=== PATIENT | female | born 1950 ===

== ENCOUNTER → 2017-07-15 18:27 | Outpatient (CLI) | payer OTHER ==
[~2017-07-15 18:27] MED LIST: ASA81 MG; CATAFLAN 50MG; CIPROFLOXACIN750 MG PO; CLONAZEPAM1 MG PO; DOCUSATE SODIU100 MG PO; GABAPENTIN800 MG PO; LEXAPRO20 MG; METHYLPRED4 MG/DOSE- PO; NUCYNTA50 MG PO; [UNRECOGNIZED DRUG - CODE]
== END | disposition home or self-care (01) ==
LOC: RAD 18:27
DX: M43.10 Spondylolisthesis, site unspecified (principal); Z98.1 Arthrodesis status